=== PATIENT | female | born 1985 | race Caucasian/White ===

== ENCOUNTER 2021-01-16 12:49 | Outpatient (CLI) | payer OTHER, SELFPAY ==
[2021-01-16 13:11] LABS: Hematocrit 40.9 % (37.0-47.0); Hemoglobin 12.7 g/dL (12.0-15.0); Mean Corpuscular HGB Conc 31.1 g/dl (32-36); Mean Corpuscular Hemoglobin 26.3 pg (26-34); Mean Corpuscular Volume 84.7 fl (80-100); Platelet Count Result 321 k/mm3 (150-375); Red Blood Count 4.83 M/mm3 (4.2-5.4); Red Cell Distribution Width 15.3 % (11.5-14.5); White Blood Count 7.4 K/mm3 (4.5-10.0)
[2021-01-16 13:20] LABS: Anion Gap 6 mmol/L (8-16); Blood Urea Nitrogen 10 mg/dL (7-17); Calcium 9.2 mg/dL (8.4-10.2); Carbon Dioxide 29 mmol/L (22-30); Chloride 106 mmol/L (98-107); Estimated Glomerular Filt Rate 57; Glucose 91 mg/dL (65-110); Potassium 4.2 mmol/L (3.4-5.0); Sodium 141 mmol/L (137-145)
== END 2021-01-16 12:50 | disposition home or self-care (01) ==
LOC: ANHSURGERY 12:56
PROVIDERS: Anesthesiology; PCP Family Medicine; Visit Provider Student in an Organized Health Care Education/Training Program
DX: Z01.818 Encounter for other preprocedural examination (principal); N92.6 Irregular menstruation, unspecified; Z79.899 Other long term (current) drug therapy
CPT/HCPCS: 36415; 80048; 85027; 86850; 86900; 86901

== ENCOUNTER 2021-01-18 02:58 | Day surgery (SDC) | payer OTHER, SELFPAY ==
[2021-01-15 09:39] VITALS: BMI 38.8
--- NOTE | 2021-01-15 09:56 | PC.NURSE ---
Report to the Outpatient Waiting Room, entrance under the green pavilion located off [facility], at time 6:00 on date 01/18/21. OR Time: 7:30. - You and your visitor will be asked a series of questions to screen for COVID 19 for your protection. - A mask is required within the hospital. - Only one visitor is allowed at this time. Patient visitors will be guided where to wait when not with patient. Preoperative COVID Testing Requirements: No COVID Test needed if: (proof is required; if not received patient will have Rapid Test prior to entry) - Patient has received COVID Vaccine at least 14 days prior to procedure date or - Patient has positive COVID test result within last 90 days of surgery date. COVID Test needed if above criteria is not met If not COVID vaccinated a COVID test must be conducted within 72 hours of surgery and patient is asked to isolate self from time of testing until procedure. You will go to the [facility] for your COVID testing. The [facility] site is located at the corner of [address] [facility]. You will only be called if COVID results are positive and your surgeon may reschedule your elective surgery date. Patients may have clear liquids (water, carbonated beverages, clear teas, apple juice) until 3 hours prior to surgery with a maximum of 20 ounces. - No food from midnight until time of surgery - Infants may have breast milk until 4 hours before surgery, infant formula 6 hours prior to surgery. - Children will be allowed to drink immediately following surgery. If applicable, please bring a bottle or sippy cup to assist with drinking. Juice, water, soda, and popsicles are readily available. For infants on formula, please bring formula the day of surgery. Pacifiers are allowed. Take the following medications with a SIP of water the morning of surgery: ALBUTEROL (AND BRING WITH YOU), GABAPENTIN, ESCITALOPRAM, DULERA, TIZANIDINE (IF NEEDED) Medications to discontinue per physician: ETODOLAC Date to take last dose: PER DR. FRENCH Please no make-up, nail irish, hairspray, perfume, deodorant, or body powder the day of surgery. No jewelry (including any body piercings) or valuables the day of surgery, leave them at home. Please take a shower or bath the night before, or the morning of, surgery with an antibacterial soap. Wear comfortable, loose fitting clothing. Children are encouraged to wear pajamas. - Jewelry must be removed prior to entering the operating room. Rings and piercings that are not removed may be cut off. - The hospital will not accept responsibility for valuables. - Please leave all valuables, including medications, at home the day of surgery. If you are going home after surgery, a licensed auto haulaway driver must drive you home. - NO public transportation without another adult. - We recommend that an adult stay with you for 24 hours following discharge. - We also recommend that you do not drive, make important decision, drink alcoholic beverages, or take any drugs that were not prescribed by your health care provider for at least 24 hours after your discharge time. For Pediatric surgeries, we recommend two adults accompany the child home (only one inside the building at this time). Follow any additional instructions given to you from your surgeon. Telephone instructions given to MELODIE SORIANO and asked if any additional questions and then verbalized understanding. Patient advised to call surgeon office or pre surgery nurse liaison [phone] if any additional questions.
--- NOTE | 2021-01-17 13:19 | PM.IMHP ---
H&P: HPI History of Present Illness Date/Time: 01/17/21 13:19 Chief Complaint: abnormal uterine bleeding pelvic pain dyspareunia Narrative: 35 yo female who presents for robotic hysterectomy and bilateral salpingectomy for AUB, pelvic pain, and dyspareunia. Pt has been dealing with heavy prolonged menses. Pt states her heavy bleeding is causing her pelvic pain. Pt had an EMB for her AUB which showed disordered proliferative endometrium. pt desires definitive management via hysterectomy. Review of Systems Cardiovascular: Cardiovascular: Denies chest pain, Denies leg edema, Denies palpitations, Denies dyspnea and Denies dyspnea on exertion Respiratory: Respiratory: Denies cough, Denies dyspnea and Denies dyspnea on exertion Gastrointestinal: Gastrointestinal: Denies abdominal pain, Denies constipation, Denies diarrhea, Denies nausea and Denies vomiting Genitourinary: Genitourinary: Denies hematuria, Denies urinary frequency, Denies dysuria, Denies pelvic pain, Denies urinary incontinence and Denies vaginal discharge Neurologic: Reports system reviewed and no additional complaints, except as documented Psychiatric: Psychiatric: Reports no additional psychiatric complaints Endocrine: Endocrine: Denies palpitations PMFSH Social History Social History Smoking packs per day: 1 Smoking cigarettes per day: 20.0 Years smoked: 15 Smoking pack-years: 15.00 Smoking status: Current every day smoker Tobacco type: cigarettes Alcohol intake: never Substance use: never Substance use type: does not use Spiritual care concerns: No Meds Home Medications and Allergies Home Medications Medication Instructions Recorded Confirmed Type albuterol sulfate 2 puff INHALATION Q4H PRN 01/15/21 01/15/21 History escitalopram oxalate 10 mg PO DAILY 01/15/21 01/15/21 History etodolac 500 mg PO BID PRN 01/15/21 01/15/21 History furosemide 40 mg PO DAILY PRN 01/15/21 01/15/21 History gabapentin 600 mg PO TID 01/15/21 01/15/21 History mometasone-formoterol [Dulera] 2 puff INHALATION BID 01/15/21 01/15/21 History tizanidine 4 mg PO TID PRN 01/15/21 01/15/21 History Allergies Allergy/AdvReac Type Severity Reaction Status Date / Time cyclobenzaprine Allergy Hives Verified 01/15/21 09:36 [From Flexeril] lorazepam [From Ativan] Allergy Hives Verified 01/15/21 09:36 Exam Const: General: no acute distress Eyes: EOM: EOMs intact bilaterally Neck: Neck: supple Thyroid: thyroid normal Chest: Breast/axilla inspection: normal inspection of the breasts Breast/axilla palpation: normal palpation of the breasts, normal palpation of the axillae and no axillary lymphadenopathy Resp: Effort & Inspection: normal respiratory effort Auscultation: clear to auscultation bilaterally Cardio: Rate: regular rate Rhythm: regular rhythm GI: Inspection: non-distended GI Palp: Yes Soft to palpation, No Tenderness to palpation present (GI) and No Guarding due to palpation present (GI) Auscultation: normal bowel sounds : General: No bladder normal to palpation External Female Exam: normal external appearance Speculum Exam - Vagina: normal vaginal discharge and No vaginal bleeding Speculum Exam - Cervix: nontender Bimanual exam- vagina & uterus: No bladder normal to palpation and No Cervical tenderness present OB/external & speculum: No vaginal bleeding Skin: General skin exam: normal color and no rashes or lesions noted Neuro: Cognition (Neuro): normal cognition Speech: normal speech Extrem: General: normal to inspection and no edema Psych: Mental Status: mental status grossly normal Affect: normal affect Assessment and Plan Assessment and plan (1) Abnormal uterine bleeding (AUB): Code(s): N93.9 - Abnormal uterine and vaginal bleeding, unspecified Status: Acute Assessment and Plan: pt c/o prolonged heavy menses pt reports associated pelvic pain US shows a 10.3x4.5x6.5 cm uterus, endometrial str
[2021-01-18 06:14] VITALS: BP 117/79; PULSE 81; RESP 16; TEMP 36.2; O2SAT 97
[2021-01-18] MEDS: ACETAMINOPHEN 500 MG TABLET 1000 MG PO (06:30)
[2021-01-18] MEDS: KETOROLAC 15 MG/ML VIAL (*BKC) IV PUSH (06:37)
[2021-01-18] MEDS: LACTATED RINGERS 1,000 ML 30 ML IV CONT (06:39)
[2021-01-18] MEDS: ALBUTEROL SULFATE NEB 2.5 MG/3 ML INH INHALATION (07:03)
[2021-01-18 07:04] VITALS: PULSE 80; RESP 16
--- NOTE | 2021-01-18 07:12 | WPDHPUPDATE1 ---
History and Physical Update Update Date/Time: 01/18/21 07:12 History and Physical has been reviewed, including an updated exam of the patient. There are NO changes in the patient's condition. Risks, benefits, and alternatives have been discussed and questions answered. Patient agrees to proceed with procedure.
--- NOTE | 2021-01-18 07:31 | SUR.PREOP ---
Case cancelled today due to breathing concerns patient had conversation with Dr Lundberg about follow up with office to reschedule. Dr Mcclain also had conversation with patient
== END 2021-01-18 07:35 | disposition home or self-care (01) ==
PROVIDERS: PCP Family Medicine; Visit Provider Student in an Organized Health Care Education/Training Program
DX: N93.9 Abnormal uterine and vaginal bleeding, unspecified (principal); R06.9 Unspecified abnormalities of breathing; R10.2 Pelvic and perineal pain; N94.10 Unspecified dyspareunia; F17.210 Nicotine dependence, cigarettes, uncomplicated
CPT/HCPCS: 94640; 99213; A9270; G0463; J1885; J7030; J7120

== ENCOUNTER 2021-02-09 01:42 | Day surgery (SDC) | payer OTHER, SELFPAY ==
[2021-01-29 12:59] VITALS: BMI 40.6
--- NOTE | 2021-01-29 13:18 | PC.NURSE ---
Report to the Outpatient Waiting Room, entrance under the green pavilion located off [facility], at time _1200 on date _02/09/21__ OR Time: __1400 . - You and your visitor will be asked a series of questions to screen for COVID 19 for your protection. - A mask is required within the hospital. - Only one visitor is allowed at this time. Patient visitors will be guided where to wait when not with patient. Preoperative COVID Testing Requirements: No COVID Test needed if: (proof is required; if not received patient will have Rapid Test prior to entry) - Patient has received COVID Vaccine at least 14 days prior to procedure date or - Patient has positive COVID test result within last 90 days of surgery date. COVID Test needed if above criteria is not met If not COVID vaccinated a COVID test must be conducted within 72 hours of surgery and patient is asked to isolate self from time of testing until procedure. You will go to the [facility] for your COVID testing. The [facility] [facility] is located at the corner of [address] [facility]. You will only be called if COVID results are positive and your surgeon may reschedule your elective surgery date. Patients may have clear liquids (water, carbonated beverages, clear teas, apple juice) until 3 hours prior to surgery with a maximum of 20 ounces. - No food from midnight until time of surgery - Infants may have breast milk until 4 hours before surgery, infant formula 6 hours prior to surgery. - Children will be allowed to drink immediately following surgery. If applicable, please bring a bottle or sippy cup to assist with drinking. Juice, water, soda, and popsicles are readily available. For infants on formula, please bring formula the day of surgery. Pacifiers are allowed. Take the following medications with a SIP of water the morning of surgery: GABAPENTIN, SYMBICORT, ALBUTEROL NEB, TIZANIDINE, ESCITALORPAM Medications to discontinue per physician LODINE( ETODOLAC) Date to take last dose_PER WHALEN Please no make-up, nail greenlandic, hairspray, perfume, deodorant, or body powder the day of surgery. No jewelry (including any body piercings) or valuables the day of surgery, leave them at home. Please take a shower or bath the night before, or the morning of, surgery with an antibacterial soap. Wear comfortable, loose fitting clothing. Children are encouraged to wear pajamas. - Jewelry must be removed prior to entering the operating room. Rings and piercings that are not removed may be cut off. - The hospital will not accept responsibility for valuables. - Please leave all valuables, including medications, at home the day of surgery. If you are going home after surgery, a licensed truss driver helper must drive you home. - NO public transportation without another adult. - We recommend that an adult stay with you for 24 hours following discharge. - We also recommend that you do not drive, make important decision, drink alcoholic beverages, or take any drugs that were not prescribed by your health care provider for at least 24 hours after your discharge time. For Pediatric surgeries, we recommend two adults accompany the child home (only one inside the building at this time). Follow any additional instructions given to you from your surgeon. Telephone instructions given to MELODIE SORIANO and asked if any additional questions and then verbalized understanding. Patient advised to call surgeon office or pre surgery nurse liaison [phone] if any additional questions.
[2021-02-09] VITALS (15 sets, daily range): BP systolic 101–139; BP diastolic 52–84; PULSE 64–83; RESP 12–22; TEMP 36.1–36.6; O2SAT 93–100
--- NOTE | 2021-02-09 06:53 | PM.IMHP ---
H&P: HPI History of Present Illness Date/Time: 02/09/21 06:53 Chief Complaint: pelvic pain abnormal uterine bleeding dyspareunia Narrative: Pt is here today after her initial surgery date was postponed for poor respiratory status. Pt has since seen her PCP and had two rounds of systemic steroids and antibiotics. Pt was placed on a maintenance inhaler. 35 yo female who presents for robotic hysterectomy and bilateral salpingectomy for AUB, pelvic pain, and dyspareunia. Pt has been dealing with heavy prolonged menses. Pt states her heavy bleeding is causing her pelvic pain. Pt had an EMB for her AUB which showed disordered proliferative endometrium. pt desires definitive management via hysterectomy. [facility] Past Medical History Medical History Asthma Neuropathy Social History Social History Smoking packs per day: 0.05 Smoking cigarettes per day: 1.0 Years smoked: 15 Smoking pack-years: 0.75 Smoking status: Current every day smoker Tobacco type: cigarettes Alcohol intake: current Alcohol use details: Occasional/Social ETOH Substance use: never Substance use type: does not use Last use: 01/27/21 Living arrangements: with family Spiritual care concerns: No Meds Home Medications and Allergies Home Medications Medication Instructions Recorded Confirmed Type albuterol sulfate 2 puff INHALATION Q4H PRN 01/15/21 02/09/21 History escitalopram oxalate 10 mg PO DAILY 01/15/21 02/09/21 History etodolac 500 mg PO BID PRN 01/15/21 02/09/21 History furosemide 40 mg PO DAILY PRN 01/15/21 02/09/21 History gabapentin 600 mg PO TID 01/15/21 02/09/21 History tizanidine 4 mg PO TID PRN 01/15/21 02/09/21 History albuterol sulfate 0.63 mg INHALATION Q4H PRN 01/29/21 02/09/21 History budesonide-formoterol [Symbicort] 2 puff INHALATION Q12H 01/29/21 02/09/21 History norgestimate-ethinyl estradiol 1 tablet PO DAILY 01/29/21 02/09/21 History [Sprintec (28)] Allergies Allergy/AdvReac Type Severity Reaction Status Date / Time cyclobenzaprine Allergy Intermediate Hives Verified 02/09/21 12:28 [From Flexeril] lorazepam [From Ativan] Allergy Intermediate Hives Verified 02/09/21 12:28 Assessment and Plan Assessment and plan (1) Abnormal uterine bleeding (AUB): Code(s): N93.9 - Abnormal uterine and vaginal bleeding, unspecified Status: Acute Assessment and Plan: pt c/o prolonged heavy menses pt reports associated pelvic pain US shows a 10.3x4.5x6.5 cm uterus, endometrial strip was 19mm EMB showed disordered proliferative endometrium pt desires definitive management via hysterectomy (2) Pelvic pain: Code(s): R10.2 - Pelvic and perineal pain Status: Acute (3) Dyspareunia: Status: Acute
[2021-02-09] MEDS: LACTATED RINGERS 1,000 ML 30 ML IV CONT ×2 (12:45→15:31)
[2021-02-09] MEDS: ACETAMINOPHEN 500 MG TABLET 1000 MG PO (12:50)
[2021-02-09] MEDS: KETOROLAC 15 MG/ML VIAL (*BKC) IV PUSH (12:50)
--- NOTE | 2021-02-09 12:54 | P.PNAN_ITS ---
Anes - Initial Pre Proc Eval Procedure: Operation Date: 02/09/21 14:00 Proposed Procedures p Robotic Total Vaginal Hysterectomy with Bilateral Salpingectomy - Palomo Lundberg MD Date/Time: 02/09/21 12:54 Surgeon: Palomo Lundberg MD Pre Op Diagnosis: Pelvic Pain Dyspareunia Patient Data Age: 35 Gender: F Height: 1.65 m Weight: 110 kg Allergies Allergy/AdvReac Type Severity Reaction Status Date / Time cyclobenzaprine Allergy Intermediate Hives Verified 02/09/21 12:28 [From Flexeril] lorazepam [From Ativan] Allergy Intermediate Hives Verified 02/09/21 12:28 Home Medications Medication Instructions Recorded Confirmed Type albuterol sulfate 2 puff INHALATION Q4H PRN 01/15/21 02/09/21 History escitalopram oxalate 10 mg PO DAILY 01/15/21 02/09/21 History etodolac 500 mg PO BID PRN 01/15/21 02/09/21 History furosemide 40 mg PO DAILY PRN 01/15/21 02/09/21 History gabapentin 600 mg PO TID 01/15/21 02/09/21 History tizanidine 4 mg PO TID PRN 01/15/21 02/09/21 History albuterol sulfate 0.63 mg INHALATION Q4H PRN 01/29/21 02/09/21 History budesonide-formoterol [Symbicort] 2 puff INHALATION Q12H 01/29/21 02/09/21 History norgestimate-ethinyl estradiol 1 tablet PO DAILY 01/29/21 02/09/21 History [Sprintec (28)] Patient hx anesthesia problems: post op nausea/vomiting Family hx anesthesia problems: none Results Review: All pre-operative results and documents have been reviewed as part of the pre-operative evaluation. [facility] Past Medical History Medical History Asthma Neuropathy Social History Social History Smoking packs per day: 0.05 Smoking cigarettes per day: 1.0 Years smoked: 15 Smoking pack-years: 0.75 Smoking status: Current every day smoker Tobacco type: cigarettes Alcohol intake: current Alcohol use details: Occasional/Social ETOH Substance use: never Substance use type: does not use Last use: 01/27/21 Living arrangements: with family Spiritual care concerns: No Anes - Eval Final PreProcedure Day of Procedure 02/09/21 12:54 Patient weight: morbidly obese Heart: regular rate and rhythm Lungs: decreased breath sounds Airway: Mallampati scale class II Neurological: alert and oriented Last oral intake: >/= 8 hours ASA classification: III Emergent: no Anesthetic plan: proceed Anesthesia type and monitoring: general ETT and standard monitoring Results Review: All pre-operative results and documents have been reviewed as part of the pre-operative evaluation. Informed Consent: The patient's anesthetic plan and its attendant risks and benefits were discussed with the patient/family/POA. Questions were solicited and answers provided to the satisfaction of the patient/family/POA.
[2021-02-09] MEDS: SCOPOLAMINE 1.5 MG PATCH TRANSDERM (13:06)
--- NOTE | 2021-02-09 13:14 | WPDHPUPDATE1 ---
History and Physical Update Update Date/Time: 02/09/21 13:14 History and Physical has been reviewed, including an updated exam of the patient. There are NO changes in the patient's condition. Risks, benefits, and alternatives have been discussed and questions answered. Patient agrees to proceed with procedure.
[2021-02-09] MEDS: ceFAZolin 2 GM/D5W 50 ML 2 GM/50 ML BAG IVPB (13:46)
[2021-02-09] MEDS: LIDO 1%/EPINEPHRINE 1:100,000 50 ML VIAL INFILTRATE (14:30)
--- NOTE | 2021-02-09 15:21 | W.PM.PROC2 ---
Procedure Note - Detailed Date of Procedure 02/09/21 Pre-op Diagnosis Pelvic Pain Dyspareunia Post-op Diagnosis same Procedure Performed robotic assisted total laparoscopic hysterectomy and bilateral salpingectomy Surgeon Palomo Lundberg MD Anesthesia general Description of Procedure After the patient was appropriately consented she was taken to the operating room where she was transferred to the table in a dorsal supine position. General anesthesia was then induced with endotracheal intubation. The patient was transferred to a dorsal lithotomy position using adjustable yellow-fin stirrups. Her position was adjusted for appropriate support of her lower back and lower extremities. The patient was prepped and draped. A transurethral anderson catheter was place. The cervix was sequentially dilated and a TRACEE uterine manipulator placed in typical fashion about a 3cm LUPE ring. Gloves were changed. After confirmation of a functioning orogastric tube, lidocaine was injected at Rodarte's point in the LUQ and a 5mm incision was made. A 5mm Optiview trocar was then inserted into the abdominal cavity under direct visualization and done so without complication. The abdomen was then insufflated with approximately 2-3L of CO2 establishing a pneumoperitoneum and the patient was placed in Trendelenburg position. Just above the umbilicus in the midline, a 10mm incision made after injection of lidocaine and a 12mm bladeless trocar advanced into the abdominal cavity under direct visualization without incident. We subsequently placed two robotic ports in a similar fashion, one in the left mid-quadrant and one in the right, 10cm lateral to the midline port. The robot was then docked. Attention was turned to the left pelvis. The left fallopian tube was removed by sequentially dividing the mesosalpinx towards the uterus sparing the ovary. The utero-ovarian ligament was desiccated and transected, as was the round ligament. The posterior peritoneal leaf was taken down to the LUPE ring. The anterior leaf was developed as well as the start of the bladder flap. The left uterine artery was then skeletonized and desiccated and transected just above the level of the LUPE ring. Attention was turned to the right pelvis. The right fallopian tube was removed by sequentially dividing the mesosalpinx towards the uterus sparing the ovary. The utero-ovarian ligament was desiccated and transected, as was the round ligament. The posterior peritoneal leaf was taken down to the LUPE ring. The anterior leaf was developed as well as the start of the bladder flap. The right uterine artery was then skeletonized and desiccated and transected just above the level of the LUPE ring. The bladder was then further dissected inferiorly over the level of the LUPE ring. A circumferential colpotomy was made using monopolar current. The uterus, cervix, bilateral tubes were then delivered transvaginally. I then placed a single figure of eight suture of 0-vicryl in the left corner of the vaginal cuff. I then re-approximated the colpotomy with a running #1 PDO Quill suture in 2 layers. The vaginal cuff was noted to be oozing so hemoderm powder was applied. Following this dissection, the abdomen and pelvis were copiously irrigated and all surgical sites found to be hemostatic. Skin sites were reapproximated with 4-0 Vicryl in a subcuticular fashion. Steri-Strips were placed. The patient tolerated the procedure well. Sponge, needle and instrument counts were correct x 2 and the patient was taken to recovery in stable condition. Ancef wase given for antimicrobial prophylaxis. The patient had SCD's on for VTE prophylaxis during the entire procedure. Estimated Blood Loss 100 Drains No Packing No Pathology yes (cervix, uterus, bilateral fallopian tubes) Complications No immediate complications Condition stable Disposition PACU
[2021-02-09] MEDS: ONDANSETRON INJ 4 MG/2 ML VIAL IV PUSH (15:39)
--- NOTE | 2021-02-09 15:47 | SUR.PHASEI ---
[id number] - dr. chaidez called in regards to pt having exp wheezes. order received
[2021-02-09] MEDS: fentaNYL CITRATE INJ (*CRX) 100 MCG/2 ML VIAL 25 MCG IV PUSH ×8 (16:05→17:12)
[2021-02-09] MEDS: ALBUTEROL SULFATE NEB 2.5 MG/3 ML INH INHALATION (16:06)
--- NOTE | 2021-02-09 17:39 | PC.NURSE ---
This patient, Shravan Aburto, was received from PACU on 02/09/21 at 1739. Patient/family oriented to unit policies and routines
[2021-02-09] MEDS: LACTATED RINGERS 1,000 ML 125 ML IV CONT (19:21)
[2021-02-09] MEDS: KETOROLAC 30 MG/ML VIAL (*BKC) IV PUSH (22:19)
[2021-02-09] MEDS: PROMETHAZINE HCL 25 MG/ML AMPUL 12.5 MG IV PUSH (22:20)
[2021-02-10 04:00] VITALS: BP 104/45; PULSE 70; RESP 18; TEMP 36.9; O2SAT 96
[2021-02-10] MEDS: SIMETHICONE 80 MG TAB.CHEW (04:22)
[2021-02-10] MEDS: IBUPROFEN 600 MG TABLET PO (04:22)
[2021-02-10 04:52] LABS: Basophils Percent Auto 0.3 % (0.2-1.2); Eosinophils Absolute Auto 0.1 K/mm3 (0-0.3); Eosinophils Percent Auto 0.4 % (0-4.4); Hematocrit 33.5 % (37.0-47.0); Hemoglobin 10.4 g/dL (12.0-15.0); Immature Granulocyte Absolute 0.05 K/mm3 (0.00-0.031); Immature Granulocyte Percent A 0.3 % (0-0.5); Lymphocytes Absolute Auto 0.89 K/mm3 (0.9-3.2); Mean Corpuscular Hemoglobin 26.3 pg (26-34); Mean Corpuscular Volume 84.8 fl (80-100); Mean Platelet Volume 11.2 fl (7.4-10.4); Monocytes Absolute Auto 0.6 K/mm3 (0.1-0.6); Monocytes Percent Auto 4.3 % (2.6-8.5); Neutrophils Absolute Auto 13.1 K/mm3 (1.3-6.7); Neutrophils Percent Auto 88.7 % (45.5-73.1); Platelet Count Result 323 k/mm3 (150-375); Red Blood Count 3.95 M/mm3 (4.2-5.4); Red Cell Distribution Width 14.6 % (11.5-14.5); White Blood Count 14.8 K/mm3 (4.5-10.0)
[2021-02-10 05:28] LABS: Anion Gap 3 mmol/L (8-16); Blood Urea Nitrogen 10 mg/dL (7-17); Calcium 8.8 mg/dL (8.4-10.2); Carbon Dioxide 27 mmol/L (22-30); Chloride 105 mmol/L (98-107); Estimated CRCL calculation 107 ml/min; Estimated Glomerular Filt Rate > 60; Glucose 114 mg/dL (65-110); Potassium 3.7 mmol/L (3.4-5.0); Sodium 135 mmol/L (137-145)
--- NOTE | 2021-02-10 06:53 | PM.DS ---
DS: Admitting Diagnosis Discharge Date 02/11/2020 Admitting Diagnosis bleeding enlarged uterus DS: Summary Hospital Course Hospital Course: patient was admitted for robotic total vaginal hysterectomy and bilateral salpingectomy. The procedure was unremarkable. Please see the operative report for full details. She remained afebrile. She was up, voiding without difficulty, ambulating, generally without complaints. Time Spent with Patient Time attestation: Total time spent providing and/or coordinating discharge services: Exam Const: General: no acute distress Eyes: General: appearance normal, both eyes and all related structures Neck: Neck: supple and no JVD Thyroid: thyroid normal Resp: Effort & Inspection: normal respiratory effort Auscultation: clear to auscultation bilaterally Cardio: Rate: regular rate Rhythm: regular rhythm GI: Inspection: non-distended GI Palp: Yes Soft to palpation, No Tenderness to palpation present (GI) and No Guarding due to palpation present (GI) Auscultation: normal bowel sounds : General: Yes bladder normal to palpation External Female Exam: normal external appearance Speculum Exam - Vagina: normal vaginal discharge and No vaginal bleeding Speculum Exam - Cervix: nontender Bimanual exam- vagina & uterus: bladder normal to palpation and No Cervical tenderness present OB/external & speculum: No vaginal bleeding Skin: General skin exam: no rashes or lesions noted Extrem: General: normal to inspection and no edema Psych: Mental Status: mental status grossly normal Affect: normal affect DS: Data Data Completed and Pending Pending studies at discharge: Pending at discharge 02/09/21 15:01 Surgical [PTH] Routine Labs on day of discharge: Labs from last 24 hours 02/10/21 02/10/21 02/09/21 04:16 04:16 12:35 WBC 14.8 H RBC 3.95 L Hgb 10.4 L Hct 33.5 L MCV 84.8 MCH 26.3 MCHC 31.0 L RDW 14.6 H Plt Count 323 MPV 11.2 H Immature Gran % (Auto) 0.3 Neut % (Auto) 88.7 H Lymph % (Auto) 6.0 L [place] % (Auto) 4.3 Eos % (Auto) 0.4 Baso % (Auto) 0.3 Lymph # (Auto) 0.89 L [place] # (Auto) 0.6 Eos # (Auto) 0.1 Baso # (Auto) 0.0 Abs Immat Gran (auto) 0.05 H Absolute Neuts (auto) 13.1 H Absolute Nucleated RBC 0.0 Nucleated RBC % 0.0 Sodium 135 L Potassium 3.7 Chloride 105 Carbon Dioxide 27 Anion Gap 3 L BUN 10 Creatinine 0.80 Estim Creat Clear Calc 107 Estimated GFR > 60 Glucose 114 H Calcium 8.8 Blood Type O Positive Antibody Screen Negative Discharge Plan Discharge Patient Disposition: Home, Self-Care Discharge Instructions: Remove the Scopolamine patch that was placed behind your left ear in 72 hours or less. Wash your hands after touching. Stand Alone Forms: General Discharge Instructions Discharge Medications: No Action furosemide 40 mg tablet 40 mg PO DAILY PRN (Reason: Edema) RF: 0 tizanidine 4 mg tablet 4 mg PO TID PRN (Reason: Pain) RF: 0 gabapentin 300 mg capsule 600 mg PO TID RF: 0 albuterol sulfate 90 mcg/actuation HFA aerosol inhaler 2 puff INHALATION Q4H PRN (Reason: Bronchospasm) RF: 0 etodolac 500 mg tablet 500 mg PO BID PRN (Reason: Pain) RF: 0 escitalopram oxalate 10 mg tablet 10 mg PO DAILY RF: 0 albuterol sulfate 0.63 mg/3 mL Solution For Nebulization 0.63 mg INHALATION Q4H PRN (Reason: SOB) RF: 0 budesonide-formoterol [Symbicort] 80-4.5 mcg/actuation Hfa Aerosol Inhaler 2 puff INHALATION Q12H RF: 0 norgestimate-ethinyl estradiol [Sprintec (28)] 0.25-35 mg-mcg tablet 1 tablet PO DAILY RF: 0
--- NOTE | 2021-02-10 06:55 | PM.GYNPNOP ---
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: Procedures Operation Date: 02/09/21 14:00 Actual Procedure Side Surgeon p Robotic Total Vaginal Hysterectomy with Bilateral Salpingectomy Bilateral Palomo Lundberg MD Postoperative day: 1 Postoperative status: doing well Postoperative plan: routine post-op care Time Spent With Patient Time: Total time spent is greater than 50% in coordination of care (as documented) at patient's floor/unit and/or counseling patient: Time with patient: less than 15 minutes BROACHING MACHINE REPAIRER- PN:Subj Post-Op Subjective Date/time seen: 02/10/21 06:55 Subjective: patient reports feeling better and patient has no complaints Review of Systems Review of Systems: All systems reviewed & are unremarkable except as noted in HPI and below Exam Const: General: no acute distress Eyes: General: appearance normal, both eyes and all related structures Neck: Neck: supple and no JVD Thyroid: thyroid normal Resp: Effort & Inspection: normal respiratory effort Auscultation: clear to auscultation bilaterally Cardio: Rate: regular rate Rhythm: regular rhythm GI: Inspection: non-distended GI Palp: Yes Soft to palpation, No Tenderness to palpation present (GI) and No Guarding due to palpation present (GI) Auscultation: normal bowel sounds : General: Yes bladder normal to palpation External Female Exam: normal external appearance Speculum Exam - Vagina: normal vaginal discharge and No vaginal bleeding Speculum Exam - Cervix: nontender Bimanual exam- vagina & uterus: bladder normal to palpation and No Cervical tenderness present OB/external & speculum: No vaginal bleeding Skin: General skin exam: no rashes or lesions noted Extrem: General: normal to inspection and no edema Psych: Mental Status: mental status grossly normal Affect: normal affect BROACHING MACHINE REPAIRER - PN: Obj Data Vital Signs Vital Signs: Vital Signs - 24 hr 02/09/21 12:59 02/09/21 15:31 02/09/21 15:45 Temperature 97.0 F L 97.3 F L Pulse Rate 74 69 64 Respiratory Rate 14 12 Blood Pressure 139/83 136/84 114/61 Pulse Oximetry 100 100 100 02/09/21 16:00 02/09/21 16:07 02/09/21 16:10 Temperature Pulse Rate 69 68 68 Respiratory Rate 14 20 22 H Blood Pressure 126/61 Pulse Oximetry 97 02/09/21 16:15 02/09/21 16:30 02/09/21 16:45 Temperature Pulse Rate 74 75 69 Respiratory Rate 12 18 20 Blood Pressure 110/57 L 119/76 108/52 L Pulse Oximetry 95 94 96 02/09/21 17:00 02/09/21 17:15 02/09/21 17:30 Temperature Pulse Rate 70 75 83 Respiratory Rate 14 12 20 Blood Pressure 106/54 L 124/76 131/78 Pulse Oximetry 93 93 97 02/09/21 17:45 02/09/21 20:20 02/09/21 23:00 Temperature 97.6 F 97.0 F L 97.9 F Pulse Rate 81 65 65 Respiratory Rate 18 16 16 Blood Pressure 117/68 101/58 L 121/72 Pulse Oximetry 98 02/10/21 04:00 Temperature 98.5 F Pulse Rate 70 Respiratory Rate 18 Blood Pressure 104/45 L Pulse Oximetry 96 Intake/Output Intake/Output: Intake & Output 02/07/21 02/08/21 02/09/21 02/10/21 23:59 23:59 23:59 23:59 Intake Total 640 1600 Output Total 560 1000 Balance 80 600 Meds/Results Medications: Active Medications Generic Name Dose Route Start Last Admin Trade Name Freq PRN Reason Stop Dose Admin Hydrocodone Bitart/Acetaminophen 1 tab 02/09/21 17:32 Hydrocodone/Acetaminophen (*Crx) 5-325 Mg Tablet PO Q3H PRN Pain Rated 5 or Less Hydrocodone Bitart/Acetaminophen 1 tab 02/09/21 17:32 Hydrocodone/Acetaminophen (*Crx) 10-325 Mg Tablet PO Q3H PRN Pain Rated 6 or Greater Albuterol 2 puff 02/09/21 17:32 Albuterol Sulfate (*Sp) Aerosol 1 Puff INHALATION Q4H PRN Bronchospasm Escitalopram Oxalate 10 mg 02/10/21 09:00 Escitalopram Oxalate 10 Mg Tablet PO DAILY NIRAJ Furosemide 40 mg 02/09/21 17:32 Furosemide 40 Mg Tablet PO DAILY PRN Edema Gabapentin 600 mg 02/09/21 17:32 Gabapentin 300 Mg Capsule PO TID NIRAJ Ib
[2021-02-10 08:00] VITALS: BP 104/72; PULSE 72; PULSE 78; RESP 18; TEMP 36.6
[2021-02-10] MEDS: ESCITALOPRAM OXALATE 10 MG TABLET PO (08:09)
[2021-02-10] MEDS: HYDROcodone/acetaminophen (*CRX) 5-325 MG TABLET 1 TAB PO (08:11)
--- NOTE | 2021-02-10 09:10 | PC.NURSE ---
Discharge instructions given including when to follow up with Dr. Lundberg office. Pt. verbalized understanding. No questions or concerns voiced. Very pleasant and cooperative. at side.
== END 2021-02-10 09:46 | disposition home or self-care (01) ==
LOC: ANHSURGERY 13:02 → ANHOB2 17:49
PROVIDERS: PCP Family Medicine; Visit Provider Student in an Organized Health Care Education/Training Program
PROC: (CPT 58571; principal; 2021-02-09 14:00)
DX: N94.10 Unspecified dyspareunia (principal); N80.0 Endometriosis of uterus; R10.2 Pelvic and perineal pain; N92.0 Excessive and frequent menstruation with regular cycle; N93.9 Abnormal uterine and vaginal bleeding, unspecified; F17.210 Nicotine dependence, cigarettes, uncomplicated; Z79.51 Long term (current) use of inhaled steroids; J45.909 Unspecified asthma, uncomplicated; G62.9 Polyneuropathy, unspecified; E66.01 Morbid (severe) obesity due to excess calories; Z68.41 Body mass index [BMI] 40.0-44.9, adult
CPT/HCPCS: 58571; S2900; 36415; 80048; 85025; 86850; 86900; 86901; 88307; 94640; 99199; A9270; J0690; J1100; J1170; J1885; J2250; J2405; J2550; J2704; J2710; J3010; J7030; J7120